=== PATIENT | female | born 1990 | race African-American/Black ===

== ENCOUNTER 2017-09-14 01:37 | Emergency (ER) | payer SELFPAY ==
[~2017-09-14] VITALS: Ht 167.6 cm; Wt 89.8 kg
[2017-09-14 01:44] VITALS: BP 139/85; PULSE 77; RESP 20; O2SAT 99
[2017-09-14] MEDS ORDERED: NAPR1TAB98 PO (01:55)
[2017-09-14] MEDS ORDERED: SODIUM CHLOR 0.9% 1000 ML INJ 1,000 ML IV SCH (02:18)
[2017-09-14] MEDS ORDERED: SODIUM CHLORIDE 0.9% FLUSH 10 ML FLUSH IV FLUSH PRN (02:30)
[2017-09-14] MEDS ORDERED: ONDANSETRON HCL 4 MG/2 ML VIAL IVP ONE (02:30)
[2017-09-14 02:38] LABS: AUTOMATED NEUTROPHIL # 4.5 TH/MM3 (1.8-7.7); BASOPHIL # 0.2 TH/MM3 (0-0.2); BASOPHIL % 2.9 % (0.0-2.0); EOSINOPHIL # 0.1 TH/MM3 (0-0.4); EOSINOPHIL % 1.6 % (0.0-4.0); HEMATOCRIT 37.2 % (35.0-46.0); HEMOGLOBIN 12.3 GM/DL (11.6-15.3); LYMPH % 29.3 % (9.0-44.0); LYMPHOCYTE # 2.2 TH/MM3 (1.0-4.8); MEAN CELL VOLUME 78.4 FL (80.0-100.0); MEAN CORPUSCULAR HEMOGLOBIN 25.8 PG (27.0-34.0); MEAN CORPUSCULAR HGB CONC 32.9 % (32.0-36.0); MONO % 7.9 % (0.0-8.0); MONOCYTE # 0.6 TH/MM3 (0-0.9); NEUT % 58.3 % (16.0-70.0); PLATELET COUNT 304 TH/MM3 (150-450); RED BLOOD COUNT 4.75 MIL/MM3 (4.00-5.30); RED CELL DISTRIBUTION WIDTH 13.2 % (11.6-17.2); WHITE BLOOD COUNT 7.6 TH/MM3 (4.0-11.0)
[2017-09-14 02:39] LABS: BILIRUBIN, URINE NEG (NEG); BLOOD, URINE SMALL (NEG); GLUCOSE,URINE NEG (NEG); KETONE, URINE NEG (NEG); NITRITE,URINE NEG (NEG); URINE LEUKOCYTE ESTERASE LARGE (NEG)
[2017-09-14 02:45] LABS: URINE COLOR STRAW (YELLW/STRAW)
[2017-09-14 02:46] LABS: BACTERIA, URINE FEW /hpf; RBC, URINE 0-3 /hpf (0-3); SQUAMOUS EPITHELIAL CELL URINE 0-5 /hpf (0-5); WHITE BLOOD CELL CLUMPS FEW
[2017-09-14 02:48] LABS: CHLORIDE 104 MEQ/L (98-107); SODIUM (NA) 138 MEQ/L (136-145)
[2017-09-14 02:51] LABS: CALCIUM 8.9 MG/DL (8.5-10.1)
[2017-09-14 02:52] LABS: BICARBONATE 31.1 MEQ/L (21.0-32.0); BLOOD UREA NITROGEN 8 MG/DL (7-18); GLUCOSE,RANDOM 97 MG/DL (74-106)
[2017-09-14 02:54] LABS: ALT (GPT) 54 U/L (10-53); AST (GOT) 40 U/L (15-37); CREATININE 0.94 MG/DL (0.50-1.00); GLOMERULAR FILTRATION RATE 87 ML/MIN (>89)
[2017-09-14 02:56] LABS: TOTAL BILIRUBIN ADULT 0.3 MG/DL (0.2-1.0)
[2017-09-14 02:57] LABS: ALKALINE PHOSPHATASE 77 U/L (45-117)
--- NOTE | 2017-09-14 03:06 | PD ---
HPI Chief Complaint: Abdominal Pain Time Seen by Provider: 02:18 Travel History International Travel<30 days: No Contact w/Intl Traveler<30days: No Traveled to known affect area: No History of Present Illness HPI 26-year-old female presents to the emergency department by private transportation in the care of her significant other for evaluation of right lower quadrant abdominal pain. Patient has had progressively worsening symptoms since Monday. No fever no chills no nausea no vomiting no anorexia no flank pain no dysuria frequency urgency hematuria vaginal discharge or vaginal bleeding. Last menstrual period was normal for her and was 1 week ago. Patient denies . Patient is 1 para 0 AB 1. Patient denies any previous abdominal surgery. Patient states this evening pain became so severe significant other finally insisted that she come to the emergency room for evaluation. Patient states she took Aleve prior to arrival to the emergency department and symptoms have improved. Patient denies other concerns or complaints. Patient is unable to identify exacerbating or alleviating factors. PFSH Past Medical History Narrative Medical Ab1; occasional alcohol use; nursing notes reviewed ?: Not LMP: 09/07/17 Social History Alcohol Use: Yes Tobacco Use: No Substance Use: No Allergies-Medications (Allergen,Severity, Reaction): Coded Allergies: No Known Allergies (Unverified , 09/14/17) Reported Meds & Prescriptions Reported Meds & Active Scripts Active Bactrim DS (Sulfamethoxazole-Trimethoprim) 800-160 Mg Tab 1 Tab PO BID Zofran Odt (Ondansetron Odt) 4 Mg Tab 4 Mg SL Q6HR PRN Reported Aleve PM (Naproxen Sodium-Diphenhydramine) 220-25 Mg Tab 1 Tab PO HS PRN Review of Systems Except as stated in HPI: all other systems reviewed are Neg Physical Exam Narrative GENERAL: Well-developed well-nourished obese female in no acute distress or respiratory distress SKIN: Warm and dry. HEAD: Normocephalic. EYES: No scleral icterus. No injection or drainage. NECK: Supple, trachea midline. No JVD or lymphadenopathy. CARDIOVASCULAR: Regular rate and rhythm without murmurs, gallops, or rubs. RESPIRATORY: Breath sounds equal bilaterally. No accessory muscle use. GASTROINTESTINAL: Abdomen soft, right lower quadrant and suprapubic tenderness to palpation without guarding or rebound, nondistended. Pelvic exam normal external exam no redness induration or lesion; speculum exam scant white mucus cervical loss closed no tissue no clots no blood in the vaginal vault; bimanual exam no cervical motion tenderness mild right-sided adnexal tenderness without mass. MUSCULOSKELETAL: No cyanosis, or edema. BACK: Nontender without obvious deformity. No CVA tenderness. Data Data Last Documented VS Vital Signs Date Time Temp Pulse Resp B/P (MAP) Pulse Ox O2 Delivery O2 Flow Rate FiO2 09/14/17 01:44 77 20 139/85 (103) 99 Orders Orders Complete Blood Count With Diff (09/14/17 02:18) Comprehensive Metabolic Panel (09/14/17 02:18) Lipase (09/14/17 02:18) Urinalysis - C+S If Indicated (09/14/17 02:18) Ct Abd/Pel W Iv Contrast(Rout) (09/14/17 02:18) Iv Access Insert/Monitor (09/14/17 02:18) Ecg Monitoring (09/14/17 02:18) Oximetry (09/14/17 02:18) Ondansetron Inj (Zofran Inj) (09/14/17 02:30) Sodium Chlor 0.9% 1000 Ml Inj (Ns 1000 M (09/14/17 02:18) Sodium Chloride 0.9% Flush (Ns Flush) (09/14/17 02:30) Ed Urine Pregnancytest Poc (09/14/17 02:18) Urine Culture (09/14/17 02:25) Iohexol 350 Inj (Omnipaque 350 Inj) (09/14/17 03:10) Ceftriaxone Inj (Rocephin Inj) (09/14/17 04:00) Ed Discharge Order (09/14/17 03:53) Ketorolac Inj (Toradol Inj) (09/14/17 04:00) Labs Laboratory Tests Test 09/14/17 02:25 White Blood Count 7.6 TH/MM3 Red Blood Count 4.75 MIL/MM3 Hemoglobin 12.3 GM/DL Hematocrit 37.2 % Mean Corpuscular Volume 78.4 FL Mean Corpuscular Hemoglobin 25.8 PG Mean Corpuscular Hemoglobin Concent 32.9 % Red Cell Distribution Width 13.2 % Platelet Count 304 TH/MM3 Mean Platelet Volume 9.0 FL Neutrophils (%) (Auto) 58.3 % Lymphocytes (%) (Auto) 29.3 % Monocytes (%) (Auto) 7.9 % Eosinophils (%) (Auto) 1.6 % Basophils (%) (Auto) 2.9 % Neutrophils # (Auto) 4.5 TH/MM3 Lymphocytes # (Auto) 2.2 TH/MM3 Monocytes # (Auto) 0.6 TH/MM3 Eosinophils # (Auto) 0.1 TH/MM3 Basophils # (Auto) 0.2 TH/MM3 CBC Comment DIFF FINAL Differential Comment Urine Color STRAW Urine Turbidity HAZY Urine pH 7.0 Urine Specific [place] 1.015 Urine Protein NEG mg/dL Urine Glucose (UA) NEG mg/dL Urine Ketones NEG mg/dL Urine Occult Blood SMALL Urine Nitrite NEG Urine Bilirubin NEG Urine Leukocyte Esterase LARGE Urine RBC 0-3 /hpf Urine WBC 50-99 /hpf Urine WBC Clumps FEW Urine Squamous Epithelial Cells 0-5 /hpf Urine Bacteria FEW /hpf Microscopic Urinalysis Comment CULTURE INDICATED Blood Urea Nitrogen 8 MG/DL Creatinine 0.94 MG/DL Random Glucose 97 MG/DL Total Protein 8.0 GM/DL Albumin 4.0 GM/DL Calcium Level 8.9 MG/DL Alkaline Phosphatase 77 U/L Aspartate Amino Transf (AST/SGOT) 40 U/L Alanine Aminotransferase (ALT/SGPT) 54 U/L Total Bilirubin 0.3 MG/DL Sodium Level 138 MEQ/L Potassium Level 3.3 MEQ/L Chloride Level 104 MEQ/L Carbon Dioxide Level 31.1 MEQ/L Anion Gap 3 MEQ/L Estimat Glomerular Filtration Rate 87 ML/MIN Lipase 397 U/L [facility] Medical Decision Making Medical Screen Exam Complete: Yes Emergency Medical Condition: Yes Medical Record Reviewed: Yes Interpretation(s) Point of care urine test: Negative Last Impressions Abdomen/Pelvis CT 09/14/17 0218 Signed Impressions: Service Date/Time: August 03:07 - CONCLUSION: 1. There is mild pelviectasis of the right kidney, urothelial enhancement is seen. No obvious obstructing calculi. Most likely this is related to infection and correlation with urinalysis/culture and close clinical followup is recommended.. Josue Garcia MD CBC & BMP Diagram 09/14/17 02:25 Total Protein 8.0, Albumin 4.0, Calcium Level 8.9, Alkaline Phosphatase 77, Aspartate Amino Transf (AST/SGOT) 40 H, Alanine Aminotransferase (ALT/SGPT) 54 H , Total Bilirubin 0.3 Vital Signs Date Time Temp Pulse Resp B/P (MAP) Pulse Ox O2 Delivery O2 Flow Rate FiO2 09/14/17 01:44 77 20 139/85 (103) 99 Differential Diagnosis Abdominal pain, UTI, obstructive uropathy, atypical appendicitis, ruptured ovarian cyst, atypical ovarian torsion, ectopic Narrative Course IV access obtained specimens collected and sent for resulting; [id number] hCG negative Lab martni remarkable for mild elevation of transaminases 45 and 40 with gradual elevation of lipase at 397 urinalysis is abnormal with white blood cells, white blood cells and bacteria cultures indicated Patient sent for CT abdomen pelvis appendix is normal no evidence for bowel obstruction obstructive uropathy patient also noted to have cholelithiasis without report of gallbladder wall thickening or pericholecystic fluid. Patient given first-time dose of IV antibiotic for UTI Diagnosis Primary Impression: UTI (urinary tract infection) Qualified Codes: N39.0 - Urinary tract infection, site not specified Additional Impression: Cholelithiasis Qualified Codes: K80.21 - Calculus of gallbladder without cholecystitis with obstruction Referrals: Primary Care Physician 2 days Patient Instructions: General Instructions Departure Forms: Tests/Procedures, Work Release Special Instructions: no work x 1 day Additional Instructions: Increase fluid hydration Complete course of antibiotic as prescribed Use zofran medication as prescribed as needed for nausea and vomiting Monitor temperature every 4 hours with thermometry take acetaminophen/Tylenol every 4 hours for fever 100.4F or greater and/or ibuprofen/Advil/Motrin 600 mg may be administered as often as every 6 hours a maximum dose of 800 mg can be administered no more frequently than every 8 hours for fever 100.4F or greater for pain associated with inflammation Follow-up with your primary care provider Return to the emergency department for any concerns or change in condition No work 1 day Med/Other Pt SpecificInfo: Prescription(s) given Scripts Sulfamethoxazole-Trimethoprim (Bactrim DS) 800-160 Mg Tab 1 TAB PO BID for Infection, #20 TAB 0 Refills Prov: Irma Larry MD 09/14/17 Ondansetron Odt (Zofran Odt) 4 Mg Tab 4 MG SL Q6HR Y for Nausea/Vomiting, #10 TAB 0 Refills Prov: Irma Larry MD 09/14/17 Disposition: 01 DISCHARGE HOME Condition: Stable Irma Larry MD Sep 14, 2017 03:06
[2017-09-14] MEDS ORDERED: IOHEXOL 350 MG/ML 10 ML VIAL (for RAD DIAG) IVCONTRAST ONE (03:10)
--- NOTE | 2017-09-14 03:32 | RADRPT ---
EXAM DATE/TIME: 09/14/2017 03:07 [facility] COMPARISON: No previous studies available for comparison. INDICATIONS : Abdominal pain. IV CONTRAST: 95 cc Omnipaque 350 (iohexol) IV ORAL CONTRAST: No oral contrast ingested. RADIATION DOSE: 13.71 CTDIvol (mGy) MEDICAL HISTORY : None SURGICAL HISTORY : None. ENCOUNTER: Initial ACUITY: 1 week PAIN SCALE: 10/10 LOCATION: abdomen TECHNIQUE: Volumetric scanning of the abdomen and pelvis was performed. Using automated exposure control and ad justment of the mA and/or kV according to patient size, radiation dose was kept as low as reasonably achievable to obtain optimal diagnostic quality images. DICOM format image data is available electro nically for review and comparison. FINDINGS: Liver, spleen, pancreas, adrenals, left kidney and stomach are unremarkable. The gallbladder is fille d with stones. There is no evidence of bowel obstruction. Small bowel, large bowel and appendix are n ormal in appearance. There is right renal pelviectasis with urothelial enhancement of the right renal pelvis and ureter identified. The bladder is unremarkable. There are no obvious calculi. The osseous structures are intact. Lung bases are clear. Uterus unremarkable. Bilateral follicular cysts. CONCLUSION: 1. There is mild pelviectasis of the right kidney, urothelial enhancement is seen. No obvious obstruc ting calculi. Most likely this is related to infection and correlation with urinalysis/culture and close clinical f ollowup is recommended.. Josue Garcia MD on September 14, 2017 at 3:27 Board Certified Radiologist. This report was verified electronically.
[2017-09-14] MEDS ORDERED: ZOFR4TAB3 SL (03:56)
[2017-09-14] MEDS ORDERED: BACT800T5 PO (03:56)
[2017-09-14] MEDS ORDERED: cefTRIAXone INJ 1,000 MG in SODIUM CHLORIDE 0.9% INJ 100 ML IV ONE (04:00)
[2017-09-14] MEDS ORDERED: KETOROLAC TROMETHAMINE 30 MG/ML (IVP) VIAL IV PUSH ONE (04:00)
[2017-09-14 04:56] VITALS: BP 139/58
== END 2017-09-14 04:58 | disposition home or self-care (01) ==
LOC: PHED 01:37
DX: N39.0 Urinary tract infection, site not specified (principal); K80.20 Calculus of gallbladder without cholecystitis without obstruction; B96.20 Unspecified Escherichia coli [E. coli] as the cause of diseases classified elsewhere
CPT/HCPCS: 74177; 80053; 81001; 83690; 84703; 85025; 87077; 87086; 87186; 96361; 96365; 96375; 99284; J0696; J1885; J2405; J7030; Q9967